=== PATIENT | male | born 2000 | race Caucasian/White ===

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

== ENCOUNTER 2018-03-20 18:23 | Emergency (ER) | payer SELFPAY ==
[~2018-03-20] VITALS: Ht 182.9 cm; Wt 59.1 kg
[2018-03-20 18:31] VITALS: Ht 182.9 cm; Wt 59.1 kg
[2018-03-20] MEDS ORDERED: ULTRAM50 MG PO (19:21)
[2018-03-20 20:19] VITALS: BP 103/52
== END 2018-03-20 20:28 | disposition home or self-care (01) ==
LOC: D.ER 18:23
DX: S80.12XA Contusion of left lower leg, initial encounter (principal); V19.9XXA Pedal cyclist (driver) (passenger) injured in unspecified traffic accident, initial encounter; Y93.55 Activity, bike riding; Y92.89 Other specified places as the place of occurrence of the external cause; M25.572 Pain in left ankle and joints of left foot

== ENCOUNTER 2019-01-02 20:08 | Emergency (ER) | payer SELFPAY ==
[~2019-01-02] VITALS: Ht 182.9 cm; Wt 54.5 kg
[~2019-01-02 20:08] MED LIST: ULTRAM50 MG PO
[2019-01-02 20:16] VITALS: Ht 182.9 cm; Wt 54.5 kg
[2019-01-02] MEDS ORDERED: KEFLEX500 MG PO (23:29)
[2019-01-02] MEDS ORDERED: IBUPROFEN800 MG PO (23:30)
[2019-01-02] MEDS ORDERED: ACETAMINOPHEN500 M1 PO (23:30)
[2019-01-03 00:15] VITALS: BP 110/65
[2019-01-07 18:08] LABS: AEROBE ID Final report (())
== END 2019-01-03 00:15 | disposition home or self-care (01) ==
LOC: D.ER 20:08
PROVIDERS: Family Medicine
DX: J03.90 Acute tonsillitis, unspecified (principal); Z72.0 Tobacco use; R56.9 Unspecified convulsions

== ENCOUNTER 2019-01-13 11:20 | Emergency (ER) | payer SELFPAY ==
[~2019-01-13] VITALS: Ht 182.9 cm; Wt 56.8 kg
[~2019-01-13 11:20] MED LIST changes: +ACETAMINOPHEN500 M1 PO; +IBUPROFEN800 MG PO; +KEFLEX500 MG PO
[2019-01-13 11:33] VITALS: Ht 182.9 cm; Wt 56.8 kg
[2019-01-13] MEDS ORDERED: AMOXICILLIN500 M1 PO (16:04)
[2019-01-13] MEDS ORDERED: NAPROSYN500 MG PO (16:04)
[2019-01-13 16:36] VITALS: BP 113/71
== END 2019-01-13 16:38 | disposition home or self-care (01) ==
LOC: D.ER 11:20
DX: J02.9 Acute pharyngitis, unspecified (principal); J06.9 Acute upper respiratory infection, unspecified

== ENCOUNTER 2019-03-04 12:08 | Emergency (ER) | payer MEDICAID ==
[~2019-03-04] VITALS: Ht 182.9 cm; Wt 55.9 kg
[~2019-03-04 12:08] MED LIST changes: +AMOXICILLIN500 M1 PO; +NAPROSYN500 MG PO
[2019-03-04 12:13] VITALS: Ht 182.9 cm; Wt 55.9 kg
[2019-03-04 12:56] LABS: BASOPHILS 0.2 % (0-2); EOSINOPHILS 0.9 % (0-7); HEMATOCRIT 39.9 % (42.0-54.0); HEMOGLOBIN 13.2 g/dL (13.5-17.5); IMMATURE GRANULOCYTES 0.1 % (0-5); LYMPHOCYTES 11.2 % (15-50); MCH 30.1 pg (26.0-34.0); MCHC 33.1 g/dL (31.0-37.0); MCV 90.9 fL (80.0-100.0); MEAN PLATELET VOLUME 9.6 fL (7.4-10.4); MONOCYTES 8.8 % (2-11); NEUTROPHILS 78.8 % (40-80); PLATELET COUNT 350 10x3/uL (130-400); RBC 4.39 10x6/uL (4.20-6.10); RDW 14.3 % (11.5-14.5); WBC 8.8 10x3/uL (4.8-10.8)
[2019-03-04 13:06] LABS: CALC OSMOLALITY 279 mosm/kg (275-300); CALCIUM 9.3 mg/dL (8.5-10.1); CARBON DIOXIDE 30.2 mmol/L (21.0-32.0); CHLORIDE - SERUM 105 mmol/L (98-107); CREATININE - SERUM 0.8 mg/dL (0.6-1.3); GLUCOSE 103 mg/dL (74-106); POTASSIUM - SERUM 4.5 mmol/L (3.5-5.1); SODIUM 141 mmol/L (136-145); UREA NITROGEN 10 mg/dL (7-18); eGFR NON AFRICAN AMERICAN > 90 mL/min (90-120)
[2019-03-04 13:12] LABS: ALKALINE PHOSPHATASE 79 U/L (46-116); ALT (SGPT) 23 U/L (10-68); BILIRUBIN - TOTAL 0.24 mg/dL (0.2-1.3); PROTEIN - SERUM 6.8 g/dL (6.4-8.2)
[2019-03-04 14:04] LABS: APPEARANCE CLEAR (CLEAR); BILIRUBIN NEGATIVE (NEGATIVE); COLOR STRAW (YELLOW); GLUCOSE NEGATIVE (NEGATIVE); KETONE NEGATIVE (NEGATIVE); NITRITE NEGATIVE (NEGATIVE); PROTEIN NEGATIVE (NEGATIVE); SPECIFIC GRAVITY 1.005 (1.005-1.020); UROBILINOGEN NORMAL (NORMAL)
[2019-03-04 14:56] VITALS: BP 122/67
== END 2019-03-04 15:37 | disposition home or self-care (01) ==
LOC: D.ER 12:08
PROVIDERS: Family Medicine
DX: R10.31 Right lower quadrant pain (principal); D64.9 Anemia, unspecified; R59.1 Generalized enlarged lymph nodes

== ENCOUNTER 2019-03-20 12:37 | Emergency (ER) | payer MEDICAID ==
[2019-03-04 12:13] VITALS: Ht 182.9 cm; Wt 56.8 kg
[~2019-03-20] VITALS: Ht 182.9 cm; Wt 56.8 kg
[2019-03-20 12:43] VITALS: BP 118/61
[2019-03-20] MEDS ORDERED: TAMIFLU75 MG PO (14:36)
== END 2019-03-20 14:43 | disposition home or self-care (01) ==
LOC: D.ER 12:37
DX: J11.1 Influenza due to unidentified influenza virus with other respiratory manifestations (principal); Z72.0 Tobacco use; R51 Headache; R11.0 Nausea